=== PATIENT | female | born 1940 | race Asian ===

== ENCOUNTER → 2018-03-05 | Outpatient (CLI) | payer MEDICARE, BC, OTHER | END | disposition home or self-care (01) | LOC: CFH 11:59 | PROVIDERS: ATTEND Internal Medicine | DX: J92.9 Pleural plaque without asbestos (principal); J90 Pleural effusion, not elsewhere classified; J98.11 Atelectasis; Z85.3 Personal history of malignant neoplasm of breast | CPT/HCPCS: 71046; 77066 ==

== ENCOUNTER → 2018-04-07 | Outpatient (CLI) | payer MEDICARE, BC, OTHER ==
[~2018-04-07] MED LIST: OMNIPAQUE 350 MG/ML, 75ML BOTTLE ONE
== END | disposition home or self-care (01) ==
LOC: CFH 11:58
PROVIDERS: ATTEND Internal Medicine
DX: J90 Pleural effusion, not elsewhere classified (principal); I77.810 Thoracic aortic ectasia; C50.911 Malignant neoplasm of unspecified site of right female breast
CPT/HCPCS: 71260; Q9967

== ENCOUNTER 2018-04-30 09:56 | Day surgery (SDC) | payer MEDICARE, BC, OTHER ==
[2018-04-28 14:18] LABS: ALBUMIN 3.2 g/dL (3.4-5.0); ANION GAP 8 mmol/L (5-15); CALCIUM 10.1 mg/dL (8.5-10.1); CHLORIDE 106 mmol/L (98-107)
[2018-04-28 14:22] LABS: ALANINE AMINOTRANSFERASE 28 U/L (12-78); ALKALINE PHOSPHATASE 70 U/L (45-117); BILIRUBIN,TOTAL 0.6 mg/dL (0.2-1.0); CREATININE 0.99 mg/dL (0.55-1.02); TOTAL PROTEIN 8.5 g/dL (6.4-8.2)
[2018-04-28 14:27] LABS: RED BLOOD COUNT 3.88 x10^6/uL (3.82-5.3)
[2018-04-28 14:28] LABS: MEAN CORPUSCULAR HEMOGLOBIN 31.7 pg (27.0-34.8); MEAN CORPUSCULAR HGB CONC 33.4 g/dL (32.4-35.8); MEAN CORPUSCULAR VOLUME 94.8 fL (80-100); MEAN PLATELET VOLUME 7.1 fL (7.4-10.4); NEUTROPHILS % (AUTO) 82 % (42-75); PLATELET COUNT 295 x10^3/uL (130-400); RED CELL DISTRIBUTION WIDTH 13.4 % (9.6-15.2)
[2018-04-28 14:29] LABS: BASOPHILS # (AUTO) 0.02 x10^3/uL (0-0.1); BASOPHILS % (AUTO) 0 % (0-1); EOSINOPHILS # (AUTO) 0.03 x10^3/uL (0-0.4); EOSINOPHILS % (AUTO) 0 % (1-7); LYMPHOCYTES # (AUTO) 0.66 x10^3/uL (1-3.4); LYMPHOCYTES % (AUTO) 11 % (22-44); MD NO; MONOCYTES # (AUTO) 0.39 x10^3/uL (0.2-0.8); MONOCYTES % (AUTO) 6 % (2-9); NEUTROPHILS # (AUTO) 5.04 x10^3/uL (1.8-6.8)
[2018-04-28 14:36] LABS: INTERNATIONAL NORMALIZED RATIO 1.03 (0.93-1.1); PROTHROMBIN TIME 10.9 Seconds (9.6-11.5)
[~2018-04-30] VITALS: Ht 162.6 cm; Wt 45.9 kg
[2018-04-30 07:38] VITALS: BP 148/85
[~2018-04-30 09:56] MED LIST changes: +ACETAMINOPHEN 325 MG TABLET PO PRN; +ALBUTEROL SULFATE 2.5 MG/3 ML NPPB PRN; +BENZ-17 PO; +BUPIVACAINE/PF-EPI 0.5% 1:200K ONE; +CHOL100015 PO; +FENTANYL PF 100 MCG/2ML IV PRN; +FENTANYL PF 250 MCG/5ML ONE; +HYDROmorphone 2 MG/ML, 1ML IVPush PRN; +LACTATED RINGERS 1,000 ML IV SCH; -OMNIPAQUE 350 MG/ML, 75ML BOTTLE ONE; +OXYcodone 5 MG/5 ML ORAL.SOL UDC PO PRN; +PROMETHAZINE 25 MG/ML, 1ML IV PRN; +SIMV20TA3 PO; +SUGAMMADEX 200 MG/2 ML IVPush ONE; +TRAZ50TA66 PO; +hydrALAzine 20 MG/ML, 1ML IV PRN
[2018-04-30] MEDS ORDERED: morphine SULFATE 10 MG/ML, 1ML IVPush PRN (10:00)
[2018-04-30] MEDS ORDERED: OXYcodone 5 MG/5 ML ORAL.SOL UDC PO PRN (10:00)
[2018-04-30] MEDS ORDERED: ONDANSETRON 2MG/ML, 2ML IVPush PRN (10:00)
[2018-04-30] MEDS ORDERED: LABETALOL 20 MG/4 ML ONE (10:29)
[2018-04-30] MEDS: LABETALOL 5MG/ML, 20ML IV PRN ×2 (10:33→10:54)
[2018-04-30] MEDS ORDERED: OXYcodone 5 MG/5 ML ORAL.SOL UDC ONE (10:55)
[2018-04-30] MEDS ORDERED: PROPOFOL 10 MG/ML, 20ML ONE (11:07)
[2018-04-30] MEDS ORDERED: CEFAZOLIN 1,000 MG ONE (11:07)
[2018-04-30] MEDS ORDERED: ONDANSETRON 2MG/ML, 2ML ONE (11:07)
[2018-04-30] MEDS ORDERED: DEXAMETHASONE 4 MG/ML, 1ML ONE (11:07)
== END 2018-04-30 16:40 | disposition home or self-care (01) ==
LOC: OUT 09:56 → ORIP 09:56 → UNDOADMOB 09:56 → ORIP 15:38 → 3WST 15:38 → OUT 16:40 → ORIP 05-01 16:34 → 2N 05-01 16:34 → ORIP 05-01 16:35 → 2N 05-01 16:35 → ORIP 05-07 12:49 → CCU 05-07 12:49 → ORIP 05-23 15:20 → 3WST 05-23 15:20
PROVIDERS: ATTEND Surgery
DX: Z45.2 Encounter for adjustment and management of vascular access device (principal); C38.4 Malignant neoplasm of pleura; J90 Pleural effusion, not elsewhere classified; Z85.3 Personal history of malignant neoplasm of breast; Z79.01 Long term (current) use of anticoagulants; Z79.899 Other long term (current) drug therapy; Z98.890 Other specified postprocedural states
CPT/HCPCS: 32550; 32609; 36415; 71045; 80053; 85025; 85610; 85730; 86850; 86900; 88112; 88305; 88342; 88360; 88361; 88377; 93005; C1729; J0690; J1100; J2405; J2704; J3010; J7120

== ENCOUNTER → 2018-07-07 | Outpatient (CLI) | payer MEDICARE, BC, OTHER ==
[~2018-07-07] MED LIST changes: -ACETAMINOPHEN 325 MG TABLET PO PRN; -ALBUTEROL SULFATE 2.5 MG/3 ML NPPB PRN; -BUPIVACAINE/PF-EPI 0.5% 1:200K ONE; -FENTANYL PF 100 MCG/2ML IV PRN; -FENTANYL PF 250 MCG/5ML ONE; -HYDROmorphone 2 MG/ML, 1ML IVPush PRN; -LACTATED RINGERS 1,000 ML IV SCH; +OMNIPAQUE 350 MG/ML, 100ML BOTTLE ONE; -OXYcodone 5 MG/5 ML ORAL.SOL UDC PO PRN; -PROMETHAZINE 25 MG/ML, 1ML IV PRN; -SUGAMMADEX 200 MG/2 ML IVPush ONE; -hydrALAzine 20 MG/ML, 1ML IV PRN
== END | disposition home or self-care (01) ==
LOC: RAD 09:49
PROVIDERS: ATTEND Internal Medicine Hematology & Oncology
DX: C79.51 Secondary malignant neoplasm of bone (principal); C50.919 Malignant neoplasm of unspecified site of unspecified female breast; J98.11 Atelectasis; J94.8 Other specified pleural conditions; N28.9 Disorder of kidney and ureter, unspecified
CPT/HCPCS: 71260; 74177; 78306; A9503; Q9967

== ENCOUNTER → 2018-08-19 | Outpatient (CLI) | payer MEDICARE, BC, OTHER | END | disposition home or self-care (01) | LOC: CFH 08:21 | PROVIDERS: ATTEND Internal Medicine Hematology & Oncology | DX: C50.911 Malignant neoplasm of unspecified site of right female breast (principal); C79.51 Secondary malignant neoplasm of bone; J90 Pleural effusion, not elsewhere classified; R91.8 Other nonspecific abnormal finding of lung field; N28.1 Cyst of kidney, acquired; I77.810 Thoracic aortic ectasia; R59.0 Localized enlarged lymph nodes | CPT/HCPCS: 71260; 74177; Q9967 ==

== ENCOUNTER 2018-12-15 07:13 | Outpatient (CLI) | payer MEDICARE, BC, OTHER | END 2018-12-15 23:59 | disposition home or self-care (01) | LOC: PETCFH 07:13 | PROVIDERS: ATTEND Internal Medicine Hematology & Oncology | DX: C50.919 Malignant neoplasm of unspecified site of unspecified female breast (principal) | CPT/HCPCS: 78306; A9503 ==